=== PATIENT | male | born 1975 | race Caucasian/White ===

== ENCOUNTER 2017-06-13 22:31 | Emergency (ER) | payer OTHER ==
[2017-06-13 22:40] VITALS: TEMP 98.1
[2017-06-13] MEDS ORDERED: CLINDAMYCIN 600 MG/DEXTROSE 50 ML IV ONE (23:04)
--- NOTE | 2017-06-13 23:09 | EDPHY ---
H & P Stated Complaint: facial swelling Time Seen by Provider: 06/13/17 22:50 HPI/ROS: HPI The patient presents with progressive facial swelling which began about 4 days ago and is getting progressively worse. He initially thought he had sinusitis and tried some decongestants without much relief. He also tried Benadryl without improvement. The swelling began in his nose and has spread laterally, bilaterally to his cheeks. It is slightly itchy and sore to the touch. He denies any facial injuries recently. He has no prior history of similar. Last night he had a brief episode of chills. He has not had any fever. He has not had any nasal congestion, rhinorrhea, cough, changes in his vision, sore throat. He was able to talk to a friend who is a newspaper correspondent and she recommended Marika initially. She then examined him in person earlier today and recommended antibiotics, she gave him a dose of amoxicillin, however there is some concern that this is . REVIEW OF SYSTEMS Constitutional: No fever, no chills. Eyes: No discharge. ENT: No sore throat. Cardiovascular: No chest pain, no palpitations. Respiratory: No cough, no shortness of breath. Skin: See HPI Neurological: No headache. PMHx: Healthy Soc Hx: Recently visited [place] PHYSICAL General Appearance: Alert, no distress Eyes: Pupils equal and round no pallor or injection, extraocular movements are full ENT, Mouth: Mucous membranes moist, no intraoral lesions Respiratory: There are no retractions, lungs are clear to auscultation Cardiovascular: Regular rate and rhythm Gastrointestinal: Abdomen is soft and non-tender, no masses, bowel sounds normal Neurological: A&O, moves all extremities Skin: Face has erythematous, slightly tender rash in malar distribution, there are no areas of fluctuance, it is slightly warm Musculoskeletal: Neck is supple non tender Extremities: symmetrical, full range of motion Psychiatric: Patient is oriented X 3, there is no agitation Source: Patient Exam Limitations: No limitations - Personal History Current Tetanus/Diphtheria Vaccine: Unsure Current Tetanus Diphtheria and Acellular Pertussis (TDAP): Unsure - Medical/Surgical History Hx Asthma: No Hx Chronic Respiratory Disease: No Hx Diabetes: No Hx Cardiac Disease: No Hx Renal Disease: No Hx Cirrhosis: No Hx Alcoholism: No Hx HIV/AIDS: No Hx Splenectomy or Spleen Trauma: No - Social History Smoking Status: Never smoked Constitutional: Initial Vital Signs Temperature (C) 36.7 C 06/13/17 22:38 Heart Rate 68 06/13/17 22:38 Respiratory Rate 16 06/13/17 22:38 Blood Pressure 117/74 06/13/17 22:38 O2 Sat (%) 96 06/13/17 22:38 O2 Delivery Mode Room Air Allergies/Adverse Reactions: No Known Allergies Allergy (Unverified 06/13/17 22:40) Home Medications: Medication Instructions Recorded Clindamycin 300 mg PO Q6H 7 Days cap 06/13/17 Medical Decision Making Differential Diagnosis: This is a healthy 42-year-old male who presents with several days of facial redness and swelling which has gotten progressively worse. On exam, he is afebrile with normal vital signs, he does have a confluent erythematous rash in the malar distribution which is warm and slightly tender to palpation. I feel he likely has a facial cellulitis. I have considered deep infection such is orbital cellulitis or nasal abscess, however exam does not support this. Because of the diffuse nature of this cellulitis, I feel a warrants treatment with IV antibiotics. He will receive a dose of clindamycin IV in the emergency department and then be given a prescription for clindamycin by mouth. I have discussed return precautions to the emergency department with him. I have encouraged him to call ear nose and throat tomorrow morning to arrange for close follow-up for Re exam. - Data Points Medications Given: Discontinued Medications Clindamycin Phosphate/Dextrose (Cleocin 600 Mg (Premix)) 50 mls @ 100 mls/hr IV EDNOW ONE PRN Reason: Protocol Stop: 06/13/17 23:33 Last Admin: 06/13/17 23:33 Dose: 50 mls Departure - Departure Disposition: Home, Routine, Self-Care Clinical Impression: Facial cellulitis Condition: Good Instructions: Cellulitis (ED) Additional Instructions: Please take the antibiotic as prescribed. You can call Dr. Stone to arrange for a follow-up appointment tomorrow morning. You can take ibuprofen or Tylenol as needed for pain. You need to return to the emergency department if your worse in any way. Referrals: Chinmay Evans MD [Primary Care Provider] - As per Instructions Tate Stone MD [Medical Doctor] - As per Instructions Prescriptions: Clindamycin 300 mg PO Q6H 7 Days cap
[2017-06-14 00:10] VITALS: O2SAT 97
[2017-06-14 00:15] VITALS: BP 100/62; PULSE 73; RESP 16
== END 2017-06-14 00:15 | disposition home or self-care (01) ==
DX: L03.211 Cellulitis of face (principal)
CPT/HCPCS: 96365

== ENCOUNTER → 2018-05-10 | Outpatient (CLI) | payer BC, OTHER | PROVIDERS: ATTEND Internal Medicine Gastroenterology | DX: R13.10 Dysphagia, unspecified (principal) | CPT/HCPCS: 92611-GN ==